=== PATIENT | male | born 1960 | race Caucasian/White ===

== ENCOUNTER 2020-06-08 04:40 | Emergency (ER) | payer BC ==
[2020-06-08 04:49] VITALS: RESP 18; TEMP 98.1
[2020-06-08] MEDS ORDERED: predniSONE 20 MG TAB PO STA (05:25)
--- NOTE | 2020-06-08 05:25 | ED ---
Back Pain HPI - General Chief Complaint: Back Pain/Injury Stated Complaint: Left leg pain Time Seen by Provider: 06/08/20 05:05 Source: patient Limitations: no limitations - History of Present Illness Initial Comments: This patient's 59-year-old man who presents to be evaluated for left low back pain that radiates to the left leg. He states that had come on last week after day at work. 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 Patient states the pain had started in the left low back, indicating the lumbar and lumbosacral area. He states that it's an aching/burning and it does go to the lateral aspect of left thigh. No saddle anesthesia. No change in bladder or bowel function. No weakness or numbness. He is able to walk well. The patient saw his physician and was given Medrol Dosepak as well as ibuprofen and Neurontin. Patient states the pain in the back is better but still has some intermittent flares down the leg. No abdominal pain. MD Complaint: back pain Onset/Timin -: week(s) Similar Symptoms Previously: No Place: work Radiation: left leg Severity: moderate Quality: aching Consistency: other (Partially resolved) Worsens With: sitting upright Context: other (Driving) Associated Symptoms: denies other symptoms - Related Data Previous Rx's Medication Instructions Recorded predniSONE [Deltasone] 20 mg PO BID #8 tab 06/08/20 Allergies Allergy/AdvReac Type Severity Reaction Status Date / Time No Known Allergies Allergy Verified 06/08/20 04:49 Review of Systems ROS Statement: Those systems with pertinent positive or pertinent negative responses have been documented in the HPI. ROS Other: All systems not noted in ROS Statement are negative. Constitutional: Denies: fever, chills Respiratory: Denies: cough, dyspnea Cardiovascular: Denies: chest pain, palpitations, edema Gastrointestinal: Denies: abdominal pain, diarrhea, constipation Genitourinary: Denies: dysuria, frequency, hematuria, testicular pain, testicular mass Musculoskeletal: Reports: as per HPI, back pain Skin: Denies: rash Neurological: Denies: weakness, numbness, paresthesias Past Medical History Past Medical History: CVA/TIA, Hyperlipidemia, Hypertension History of Any Multi-Drug Resistant Organisms: None Reported Past Surgical History: No Surgical Hx Reported Past Psychological History: No Psychological Hx Reported Smoking Status: Former smoker Past Alcohol Use History: None Reported Past Drug Use History: None Reported General Exam Limitations: no limitations General appearance: alert, in no apparent distress Head exam: Present: atraumatic, normocephalic Neck exam: Present: full ROM Respiratory exam: Present: normal lung sounds bilaterally. Absent: respiratory distress, wheezes, rales, rhonchi, stridor Cardiovascular Exam: Present: regular rate, normal rhythm, normal heart sounds. Absent: systolic murmur, diastolic murmur, rubs, gallop GI/Abdominal exam: Present: soft. Absent: tenderness, guarding, pulsatile mass, hernia Extremities exam: Present: normal inspection, normal capillary refill. Absent: pedal edema, calf tenderness Back exam: Present: normal inspection. Absent: CVA tenderness (R), CVA tenderness (L), paraspinal tenderness, vertebral tenderness Neurological exam: Present: alert, reflexes normal. Absent: motor sensory deficit Skin exam: Present: warm, dry, intact, normal color. Absent: rash Course Vital Signs 06/08/20 04:46 Temperature 98.1 F Pulse Rate 69 Respiratory 18 Rate Blood Pressure 171/113 O2 Sat by Pulse 97 Oximetry Disposition Clinical Impression: Sciatica, Hypertension Disposition: HOME SELF-CARE Condition: Good Instructions (If sedation given, give patient instructions): Lumbar Radiculopathy (ED), Hypertension (ED) Prescriptions: predniSONE [Deltasone] 20 mg PO BID #8 tab Is patient prescribed a controlled substance at d/c from ED?: No Referrals: Jostin Kendrick DO [Primary Care Provider] - 1-2 days Chetan Persaud DO [Doctor of Osteopathic Medicine] - 1-2 days
[2020-06-08 05:56] VITALS: BP 145/99; PULSE 70
== END 2020-06-08 05:57 | disposition home or self-care (01) ==
LOC: EC 04:40
DX: M54.30 Sciatica, unspecified side (principal); I10 Essential (primary) hypertension; Z87.891 Personal history of nicotine dependence; Z86.73 Personal history of transient ischemic attack (TIA), and cerebral infarction without residual deficits
CPT/HCPCS: 99283; J7512